=== PATIENT | female | born 1940 | race Caucasian/White ===

== ENCOUNTER 2016-10-09 09:51 | Emergency (ER) | payer MEDICARE, OTHER ==
[~2016-10-09 09:51] MED LIST: ADVAIR250 INH; ASAB PO; CIP2 PO; CREON DR 36,001 EACH; CYMBALTA60 PO; DULERA 100 MCG/13 GM INH; FISH OIL300 MG PO; FLONASE NAS; FOLIC ACID400 MC1 PO; FOLIC PO; HIPREX1 GM PO; IMOD PO; K250 PO; KLOR-CON M2020 MEQ PO; LEVOXYL100 MCG PO; MCZ125 PO; METHENAMINE PO; METHOC500B PO; MULTIPLE VIT PO; MULTIVIT/MIN PO; NEUR100 PO; NORCO1 TA2 PO; OXYCOD PO; PLAQ200B PO; PRILO PO; PRIN10 PO; PRIN5 PO; PROAIRRESP INH; PROVHFA INH; SINGULAIR1 PO; SODBICAR10 PO; SUCR PO; THERAPEUTIC PO; TYLENOL CODEINE PO; ULTRAM50 PO; VANTIN100 MG PO; VITAMIN; VITAMIN B-121000 MC1 SL; VITAMIN D31000 UNIT PO; VITAMIN D400 UNI1 PO; VITD PO; Vitamins; WELLXL150 PO; WELLXL300 PO; XELODA PO; ZOCOR; ZOCOR40 PO; ZOFRAN4 PO; [UNRECOGNIZED DRUG - REMARK]
[2016-10-09 10:33] LABS: BASOPHILS 0.5 %; BASOPHILS ABSOLUTE 0.02 10/3/uL (0.0-0.16); EOSINOPHILS 5.1 %; EOSINOPHILS ABSOLUTE 0.19 10/3/uL (0.0-0.53); ER CBC TAT 0 Hrs 07 Mins; HEMATOCRIT 27.5 % (36.0-48.0); IMMATURE GRANULOCYTES 0.3 %; IMMATURE GRANULOCYTES ABSOLUTE 0.01 10/3/uL (0.0-0.11); LYMPHOCYTES 14.2 %; LYMPHOCYTES ABSOLUTE 0.53 10/3/uL (0.67-4.30); MEAN CORPUS HGB CONC 32.7 g/dL (32.0-36.0); MEAN CORPUSCULAR VOLUME 94.8 fL (80-100); MEAN PLATELET VOLUME 9.8 fL (9.2-13.0); MONOCYTES 11.3 %; MONOCYTES ABSOLUTE 0.42 10/3/uL (0.21-1.20); NEUTROPHILS 68.6 %; NEUTROPHILS ABSOLUTE 2.55 10/3/uL (2.02-8.40); PLATELET COUNT 104 10/3/uL (150-400); RBC DISTRIBUTION WIDTH 15.1 % (12.0-16.0); WHITE BLOOD CELLS 3.7 10/3/uL (4.5-10.5)
[2016-10-09 10:34] LABS: MANUAL DIFF NO %
[2016-10-09 10:37] LABS: INTERNATIONAL NORMAL RATI 1.1 UNITS (-); PROTIME (NOT ORD) 14.4 SEC (12.0-14.5)
[2016-10-09 10:45] LABS: ALKALINE PHOSPHATASE 102 U/L (45-117); BUN (BLOOD UREA NITROGEN) 16 MG/DL (6-23); CALCIUM, SERUM 8.9 MG/DL (8.5-10.4); CHLORIDE, SERUM 112 MMOL/L (96-112); CO2 (CARBON DIOXIDE) 23 MMOL/L (24-34); CREATININE 1.16 MG/DL (0.55-1.02); GFR AFRICAN AMERICAN 53 ML/MIN (>=60); GFR NON AFRICAN AMERICAN 45 ML/MIN (>=60); GLOBULIN 3.1 G/DL (2.5-4.1); GLUCOSE, SERUM 167 MG/DL (60-99); POTASSIUM, SERUM 3.9 MMOL/L (3.5-5.3); SGOT(AST) 31 U/L (5-40); SGPT(ALT) 32 U/L (5-65); SODIUM, SERUM 142 MMOL/L (135-148); TOTAL BILIRUBIN 0.4 MG/DL (0-1.2); TOTAL PROTEIN 6.1 G/DL (6.0-8.5)
== END 2016-10-09 13:37 | disposition home or self-care (01) ==
LOC: ER 09:51
PROVIDERS: Emergency Medicine
DX: C25.9 Malignant neoplasm of pancreas, unspecified (principal); R19.00 Intra-abdominal and pelvic swelling, mass and lump, unspecified site; J45.909 Unspecified asthma, uncomplicated; N18.9 Chronic kidney disease, unspecified; F32.9 Major depressive disorder, single episode, unspecified; M79.7 Fibromyalgia; Z90.710 Acquired absence of both cervix and uterus; Z90.49 Acquired absence of other specified parts of digestive tract; Z88.5 Allergy status to narcotic agent; Z91.011 Allergy to milk products; Z79.899 Other long term (current) drug therapy
CPT/HCPCS: 36415; 71010; 74177; 80053; 83605; 83690; 85025; 85610; 86850; 86870; 86900; 86901; 93005; 96374; 99285; J2405; Q9967

== ENCOUNTER 2016-10-19 06:52 | Emergency (ER) | payer MEDICARE, OTHER ==
[2016-10-19 07:07] LABS: BASOPHILS 0.4 %; BASOPHILS ABSOLUTE 0.02 10/3/uL (0.0-0.16); EOSINOPHILS 4.4 %; EOSINOPHILS ABSOLUTE 0.25 10/3/uL (0.0-0.53); HEMATOCRIT 25.6 % (36.0-48.0); HEMOGLOBIN 8.4 g/dL (12.0-16.0); IMMATURE GRANULOCYTES 0.2 %; IMMATURE GRANULOCYTES ABSOLUTE 0.01 10/3/uL (0.0-0.11); LYMPHOCYTES 10.1 %; LYMPHOCYTES ABSOLUTE 0.57 10/3/uL (0.67-4.30); MEAN CORPUS HGB CONC 32.8 g/dL (32.0-36.0); MEAN CORPUSCULAR HEMOGLOB 31.6 pg (26.0-34.0); MEAN CORPUSCULAR VOLUME 96.2 fL (80-100); MEAN PLATELET VOLUME 9.3 fL (9.2-13.0); MONOCYTES 6.7 %; MONOCYTES ABSOLUTE 0.38 10/3/uL (0.21-1.20); NEUTROPHILS 78.2 %; NEUTROPHILS ABSOLUTE 4.42 10/3/uL (2.02-8.40); PLATELET COUNT 105 10/3/uL (150-400); RBC DISTRIBUTION WIDTH 15.1 % (12.0-16.0); RED CELL COUNT 2.66 10/6/uL (4.0-5.6)
[2016-10-19 07:09] LABS: ER CBC TAT 0 Hrs 07 Mins; MANUAL DIFF NO %; WHITE BLOOD CELLS 5.7 10/3/uL (4.5-10.5)
[2016-10-19 07:23] LABS: A/G RATIO 0.9 (0.7-1.9); ALBUMIN 2.9 G/DL (3.5-5.0); ALKALINE PHOSPHATASE 101 U/L (45-117); BUN (BLOOD UREA NITROGEN) 18 MG/DL (6-23); CHLORIDE, SERUM 110 MMOL/L (96-112); CO2 (CARBON DIOXIDE) 25 MMOL/L (24-34); CREATININE 1.05 MG/DL (0.55-1.02); GFR AFRICAN AMERICAN 59 ML/MIN (>=60); GFR NON AFRICAN AMERICAN 51 ML/MIN (>=60); GLOBULIN 3.2 G/DL (2.5-4.1); GLUCOSE, SERUM 173 MG/DL (60-99); POTASSIUM, SERUM 3.7 MMOL/L (3.5-5.3); SGOT(AST) 23 U/L (5-40); SGPT(ALT) 24 U/L (5-65); SODIUM, SERUM 142 MMOL/L (135-148); TOTAL BILIRUBIN 0.4 MG/DL (0-1.2); TOTAL PROTEIN 6.1 G/DL (6.0-8.5)
[2016-10-19 08:51] LABS: ASCORBIC ACID (UR NOT ORDER) 20 (NEG); BILIRUBIN, URINE NEGATIVE (NEG); KETONE, URINE NEGATIVE (NEG); LEUKOCYTE ESTERASE(NOT OR NEG (NEG); NITRITE (URINE) NEG (NEG); WBC (NOT ORDERED) (RFLEX) 1 (0-5)
== END 2016-10-19 09:46 | disposition home or self-care (01) ==
LOC: ER 06:52
PROVIDERS: Specialist
DX: R19.7 Diarrhea, unspecified (principal); K59.00 Constipation, unspecified; C25.9 Malignant neoplasm of pancreas, unspecified; J45.909 Unspecified asthma, uncomplicated; Z88.5 Allergy status to narcotic agent; Z88.8 Allergy status to other drugs, medicaments and biological substances; Z91.011 Allergy to milk products; Z91.018 Allergy to other foods; Z79.899 Other long term (current) drug therapy
CPT/HCPCS: 74176; 80053; 81001; 83690; 85025; 96374; 99284; J2405